=== PATIENT | female | born 1955 ===

== ENCOUNTER 2023-09-29 22:48 | Inpatient (IN) | payer MEDICARE, OTHER ==
[~2023-09-29] VITALS: Ht 165.1 cm; Wt 83.0 kg
[2023-09-29] MEDS ORDERED: AMIN30LI27 PO (23:16)
[2023-09-29] MEDS ORDERED: DIVA500T2 PO (23:16)
[2023-09-29] MEDS ORDERED: SIMV10TA98 PO (23:16)
[2023-09-29] MEDS ORDERED: PIOG30TA10 PO (23:16)
[2023-09-29] MEDS ORDERED: TRAM50TA2 PO (23:16)
[2023-09-29] MEDS ORDERED: HYDR-894 PO (23:16)
[2023-09-29] MEDS ORDERED: ONDA-104 PO (23:16)
[2023-09-29] MEDS ORDERED: METF-442 PO (23:16)
[2023-09-29] MEDS ORDERED: FOLI1TAB27 PO (23:16)
[2023-09-29] MEDS ORDERED: CHOL500062 PO (23:16)
[2023-09-29] MEDS ORDERED: CALC-261 PO (23:16)
[2023-09-29] MEDS ORDERED: CYAN100T44 PO (23:16)
[2023-09-29] MEDS ORDERED: LORA0.5T48 PO (23:16)
[2023-09-29] MEDS ORDERED: CLON0.5T PO (23:16)
[2023-09-29] MEDS ORDERED: METO25TA6 PO (23:16)
[2023-09-29] MEDS ORDERED: FERR325T28 PO (23:16)
[2023-09-29] MEDS ORDERED: ACET-3117 PO (23:16)
[2023-09-29] MEDS ORDERED: HALOPERIDOL LACTATE 5 MG/1 ML VIAL ONE (23:21)
[2023-09-29] MEDS: HALOPERIDOL LACTATE 5 MG/1 ML VIAL IM ONE (23:30)
[2023-09-29 23:41] LABS: BASOPHILS % (AUTO) 0.4 % (0.0-2.0); EOSINOPHILS % (AUTO) 0.4 % (0.0-7.0); HEMATOCRIT 34.5 % (31.2-41.9); HEMOGLOBIN 11.1 g/dL (10.9-14.3); LYMPHOCYTES # (AUTO) 2.3 K/uL (0.8-4.8); LYMPHOCYTES % (AUTO) 24.1 % (20.5-51.5); MEAN CORPUSCULAR HEMOGLOBIN 25.1 uug (24.7-32.8); MEAN CORPUSCULAR HGB CONC 32 g/dL (32.3-35.6); MEAN CORPUSCULAR VOLUME 78.2 fL (75.5-95.3); MONOCYTES # (AUTO) 0.8 K/uL (0.1-1.30); MONOCYTES % (AUTO) 8.3 % (0.0-11.0); NEUTROPHILS # (AUTO) 6.2 K/uL (1.8-8.9); NEUTROPHILS % (AUTO) 66.8 % (38.5-71.5); PLATELET COUNT (AUTO) 202 K/uL (179-408); RED BLOOD CELL COUNT(AUTO) 4.41 MIL/uL (3.63-4.92); RED CELL DISTRIBUTION WIDTH 16.8 % (12.3-17.7); WHITE BLOOD COUNT (AUTO) 9.3 K/uL (3.8-11.8)
[2023-09-29 23:46] LABS: DIFFERENTIAL COMMENT 1
[2023-09-29 23:51] LABS: CARBON DIOXIDE 28 mmol/L (21-32); CHLORIDE 95 mmol/L (98-107); CREATININE 0.9 mg/dL (0.6-1.3); GLUCOSE 199 mg/dL (74-106); POTASSIUM 4.5 mmol/L (3.5-5.1); SODIUM SERUM 131 mmol/L (136-145); UREA NITROGEN, BLOOD 15 mg/dL (7-18)
[2023-09-30 00:07] LABS: ALANINE AMINOTRANSFERASE 11 U/L (14-59); ALKALINE PHOSPHATASE 129 U/L (50-136); ASPARTATE AMINOTRANSFERASE 13 U/L (15-37); BILIRUBIN,DIRECT 0.2 mg/dL (0.0-0.2); BILIRUBIN,TOTAL 0.3 mg/dL (0.2-1.0); TOTAL PROTEIN, SERUM 7.7 g/dL (6.4-8.2)
[2023-09-30 00:10] LABS: ACETAMINOPHEN < 2.0 ug/mL (10-30)
[2023-09-30 00:15] LABS: ETHANOL < 3 MG/DL (0-10)
[2023-09-30 00:40] LABS: THYROID STIMULATING HORMONE 2.173 mIU/mL (0.358-3.740)
[2023-09-30] MEDS ORDERED: HALOPERIDOL LACTATE 5 MG/1 ML VIAL ONE (01:59)
[2023-09-30] MEDS: HALOPERIDOL LACTATE 5 MG/1 ML VIAL IM ONE (02:05)
[2023-09-30] MEDS ORDERED: LORAZEPAM 1 MG TABLET ONE ×2 (02:24→03:15)
[2023-09-30] MEDS: LORAZEPAM 0.5 MG TABLET PO ONE ×2 (02:27→03:17)
[2023-09-30] MEDS ORDERED: chlorproMAZINE 50 MG/2 ML AMPUL ONE (04:16)
[2023-09-30] MEDS: chlorproMAZINE 50 MG/2 ML AMPUL IM ONE (04:23)
[2023-09-30] MEDS ORDERED: MAG HYDROX/AL HYDROX/SIMETH 30 ML LIQUID UDC PO PRN (06:00)
[2023-09-30] MEDS ORDERED: MAGNESIUM HYDROXIDE 30 ML LIQUID UDC PO PRN (06:00)
[2023-09-30] MEDS: BLOOD SUGAR DIAGNOSTIC 1 EACH STRIP VI ONE (06:40)
[2023-09-30 07:33] VITALS: BP 100/56; TEMP 98; O2SAT 97
[2023-09-30] MEDS ORDERED: INSU100V39 SQ (14:08)
[2023-09-30] MEDS ORDERED: DEXTROSE 50% 50 ML DISP.SYRIN IV PRN (15:00)
[2023-09-30] MEDS ORDERED: hydrALAZINE HCL 25 MG TABLET PO PRN (15:00)
[2023-09-30 16:00] VITALS: BP 115/61; TEMP 97.8; O2SAT 97
[2023-09-30] MEDS: BLOOD SUGAR DIAGNOSTIC 1 EACH STRIP VI SCH (16:46)
[2023-09-30] MEDS: INSULIN REGULAR, HUMAN 300 UNIT/3 ML VIAL SQ PRN (17:11)
[2023-09-30] MEDS: METFORMIN HCL 500 MG TABLET PO SCH (17:55)
[2023-09-30] MEDS: TRAMADOL HCL 50 MG TABLET PO PRN (17:55)
[2023-09-30 20:00] VITALS: BP 140/54; TEMP 98.3; O2SAT 97
[2023-09-30] MEDS: SIMVASTATIN 10 MG TABLET PO SCH (20:44)
[2023-09-30] MEDS: ZOLPIDEM 5 MG TABLET PO PRN (20:44)
[2023-10-01] MEDS: QUETIAPINE FUMARATE 25 MG TABLET PO PRN (03:25)
[2023-10-01 07:58] VITALS: BP 121/64; TEMP 98; O2SAT 92
[2023-10-01 08:17] LABS: BASOPHILS % (AUTO) 0.4 % (0.0-2.0); EOSINOPHILS % (AUTO) 0.5 % (0.0-7.0); HEMATOCRIT 32.6 % (31.2-41.9); HEMOGLOBIN 10.6 g/dL (10.9-14.3); LYMPHOCYTES # (AUTO) 1.6 K/uL (0.8-4.8); LYMPHOCYTES % (AUTO) 28.4 % (20.5-51.5); MEAN CORPUSCULAR HEMOGLOBIN 25.5 uug (24.7-32.8); MEAN CORPUSCULAR HGB CONC 33 g/dL (32.3-35.6); MEAN CORPUSCULAR VOLUME 78.3 fL (75.5-95.3); MONOCYTES # (AUTO) 0.5 K/uL (0.1-1.30); MONOCYTES % (AUTO) 9.1 % (0.0-11.0); NEUTROPHILS # (AUTO) 3.5 K/uL (1.8-8.9); NEUTROPHILS % (AUTO) 61.6 % (38.5-71.5); PLATELET COUNT (AUTO) 178 K/uL (179-408); RED BLOOD CELL COUNT(AUTO) 4.17 MIL/uL (3.63-4.92); WHITE BLOOD COUNT (AUTO) 5.7 K/uL (3.8-11.8)
[2023-10-01] MEDS: CALCIUM CARB/VITAMIN D 500MG-200UNITS TABLET PO SCH (08:22)
[2023-10-01] MEDS: FERROUS SULFATE 325 MG TABEC PO SCH (08:22)
[2023-10-01] MEDS: PIOGLITAZONE HCL 15 MG TABLET PO SCH (08:22)
[2023-10-01] MEDS: FOLIC ACID 1 MG TABLET PO SCH (08:23)
[2023-10-01] MEDS: CYANOCOBALAMIN 1,000 MCG TABLET PO SCH (08:23)
[2023-10-01] MEDS: CHOLECALCIFEROL 1,000 UNIT TABLET PO SCH (08:23)
[2023-10-01] MEDS: PROTEIN SUPPLEMENT (PROSTAT) 30 ML LIQUID PO SCH (08:27)
[2023-10-01 08:35] LABS: ALBUMIN 2.5 g/dL (3.4-5.0); BILIRUBIN,TOTAL 0.4 mg/dL (0.2-1.0); CALCIUM 8.5 mg/dL (8.5-10.1); CREATININE 0.9 mg/dL (0.6-1.3); MAGNESIUM 1.7 mg/dL (1.8-2.4)
[2023-10-01 08:38] LABS: DIFFERENTIAL COMMENT 1
[2023-10-01] MEDS: REMEDY ESSENTIAL ZINC PASTE 113 GM TOP SCH (12:57)
[2023-10-01] MEDS: MAGNESIUM OXIDE 400 MG TABLET PO ONE (14:24)
[2023-10-01 15:19] VITALS: BP 169/86; TEMP 98.2; O2SAT 96
[2023-10-01 20:00] VITALS: BP 144/70; TEMP 99.8; O2SAT 91
[2023-10-01] MEDS: QUETIAPINE FUMARATE 25 MG TABLET PO SCH (22:49)
[2023-10-02 08:22] VITALS: BP 184/87; TEMP 98.9; O2SAT 97
[2023-10-02] MEDS: DIVALPROEX 125 MG TABLET.DR PO SCH (08:43)
[2023-10-02 17:00] VITALS: BP 137/71; TEMP 99.7; O2SAT 97
[2023-10-02] MEDS: QUETIAPINE FUMARATE 25 MG TABLET PO SCH (20:48)
[2023-10-02 22:41] VITALS: BP 171/73; TEMP 97.5
[2023-10-03 08:30] VITALS: BP 152/73; TEMP 98.5; O2SAT 96
[2023-10-03 15:56] VITALS: BP 140/75; TEMP 98; O2SAT 97
[2023-10-03 19:57] VITALS: BP 142/68; TEMP 98.1; O2SAT 96
[2023-10-03] MEDS: QUETIAPINE FUMARATE 25 MG TABLET PO SCH (21:25)
[2023-10-04 07:42] VITALS: BP 120/56; TEMP 98.2; O2SAT 91
[2023-10-04] MEDS: QUETIAPINE FUMARATE 25 MG TABLET PO SCH (08:21)
[2023-10-04] MEDS: glipiZIDE 5 MG TABLET PO SCH (08:25)
[2023-10-04 08:40] LABS: BASOPHILS % (AUTO) 0.5 % (0.0-2.0); EOSINOPHILS # (AUTO) 0.2 K/uL (0.0-0.7); EOSINOPHILS % (AUTO) 2.5 % (0.0-7.0); HEMATOCRIT 29.7 % (31.2-41.9); HEMOGLOBIN 9.7 g/dL (10.9-14.3); LYMPHOCYTES # (AUTO) 1.8 K/uL (0.8-4.8); LYMPHOCYTES % (AUTO) 25.7 % (20.5-51.5); MEAN CORPUSCULAR HEMOGLOBIN 25.1 uug (24.7-32.8); MEAN CORPUSCULAR HGB CONC 33 g/dL (32.3-35.6); MEAN CORPUSCULAR VOLUME 77.1 fL (75.5-95.3); MONOCYTES # (AUTO) 0.7 K/uL (0.1-1.30); MONOCYTES % (AUTO) 10.1 % (0.0-11.0); NEUTROPHILS # (AUTO) 4.2 K/uL (1.8-8.9); NEUTROPHILS % (AUTO) 61.2 % (38.5-71.5); PLATELET COUNT (AUTO) 199 K/uL (179-408); RED BLOOD CELL COUNT(AUTO) 3.85 MIL/uL (3.63-4.92); RED CELL DISTRIBUTION WIDTH 16.7 % (12.3-17.7); WHITE BLOOD COUNT (AUTO) 6.9 K/uL (3.8-11.8)
[2023-10-04 08:56] LABS: ALBUMIN 2.4 g/dL (3.4-5.0); BILIRUBIN,TOTAL 0.3 mg/dL (0.2-1.0); CREATININE 1.1 mg/dL (0.6-1.3); MAGNESIUM 1.6 mg/dL (1.8-2.4); PHOSPHOROUS 3.4 mg/dL (2.5-4.9); POTASSIUM 4.5 mmol/L (3.5-5.1); TOTAL PROTEIN, SERUM 6.7 g/dL (6.4-8.2)
[2023-10-04 08:57] LABS: DIFFERENTIAL COMMENT 1
[2023-10-04] MEDS: MAGNESIUM OXIDE 400 MG TABLET PO ONE (12:30)
[2023-10-04 15:53] VITALS: BP 121/63; TEMP 98.2; O2SAT 93
[2023-10-04 19:41] VITALS: BP 120/64; TEMP 98.1; O2SAT 94
[2023-10-04] MEDS: ACETAMINOPHEN 325 MG TABLET PO PRN (22:47)
[2023-10-05] MEDS: OLANZAPINE 10 MG VIAL IM ONE (00:21)
[2023-10-05 08:14] VITALS: BP 146/73; TEMP 98; O2SAT 96
[2023-10-05 15:46] VITALS: BP 123/71; TEMP 98; O2SAT 96
[2023-10-05 19:43] VITALS: BP 136/76; TEMP 98.1; O2SAT 96
[2023-10-05] MEDS: QUETIAPINE FUMARATE 25 MG TABLET PO SCH (20:16)
[2023-10-06] MEDS: ZIPRASIDONE MESYLATE 20 MG VIAL IM ONE (00:37)
[2023-10-06 07:38] VITALS: BP 140/70; TEMP 98.2; O2SAT 96
[2023-10-06 08:19] LABS: CALCIUM 8.9 mg/dL (8.5-10.1); CREATININE 0.9 mg/dL (0.6-1.3); POTASSIUM 4.5 mmol/L (3.5-5.1)
[2023-10-06] MEDS: QUETIAPINE FUMARATE 25 MG TABLET PO SCH ×2 (08:59→20:23)
[2023-10-06] MEDS: DIVALPROEX 125 MG TABLET.DR PO SCH (13:09)
[2023-10-06 15:29] VITALS: BP 131/64; TEMP 98; O2SAT 96
[2023-10-06] MEDS: glipiZIDE 5 MG TABLET PO SCH (16:52)
[2023-10-06 20:00] VITALS: BP 133/63; TEMP 98.5; O2SAT 96
[2023-10-06] MEDS: MELATONIN 3 MG TABLET PO SCH (20:23)
[2023-10-06] MEDS: TRAZODONE 50 MG TABLET PO SCH (20:23)
[2023-10-07 07:54] VITALS: BP 122/57; TEMP 98; O2SAT 96
[2023-10-07 15:09] VITALS: BP 119/96; TEMP 98; O2SAT 96
[2023-10-07] MEDS: glipiZIDE 5 MG TABLET PO SCH (16:30)
[2023-10-07 20:00] VITALS: BP 140/80; TEMP 97.8; O2SAT 93
[2023-10-08 08:01] VITALS: BP 115/61; TEMP 98; O2SAT 96
[2023-10-08 16:18] VITALS: BP 111/53; TEMP 97.8; O2SAT 98
[2023-10-08] MEDS: busPIRone 5 MG TABLET PO SCH (19:35)
[2023-10-08 20:00] VITALS: BP 136/58; TEMP 98.1; O2SAT 98
[2023-10-08] MEDS: OLANZAPINE 5 MG TABLET PO SCH (20:16)
[2023-10-09 07:30] LABS: CALCIUM 8.7 mg/dL (8.5-10.1); CREATININE 0.8 mg/dL (0.6-1.3); POTASSIUM 4.6 mmol/L (3.5-5.1)
[2023-10-09 08:10] VITALS: BP 115/60; TEMP 99.2; O2SAT 98
[2023-10-09] MEDS: OLANZAPINE 5 MG TABLET PO SCH ×2 (08:30→20:35)
[2023-10-09] MEDS ORDERED: DIVALPROEX 125 MG TABLET.DR PO SCH (14:00)
[2023-10-09] MEDS: DIVALPROEX 250 MG TABLET.DR PO ONE (14:20)
[2023-10-09 17:37] VITALS: BP 139/69; TEMP 99; O2SAT 97
[2023-10-09 20:00] VITALS: BP 149/69; TEMP 98.7; O2SAT 97
[2023-10-09] MEDS: DIVALPROEX 125 MG TABLET.DR PO SCH (20:35)
[2023-10-10 07:51] VITALS: BP 100/52; TEMP 97.8; O2SAT 97
[2023-10-10 16:38] VITALS: BP 128/59; TEMP 98; O2SAT 97
[2023-10-10] MEDS: glipiZIDE 5 MG TABLET PO SCH (17:40)
[2023-10-10 20:12] VITALS: BP 116/54; TEMP 97.9; O2SAT 96
[2023-10-10] MEDS: MELATONIN 3 MG TABLET PO SCH (20:35)
[2023-10-10] MEDS: TRAZODONE 50 MG TABLET PO SCH (20:35)
[2023-10-10] MEDS: OLANZAPINE 5 MG TABLET PO SCH (20:35)
[2023-10-11 10:12] VITALS: BP 131/51; TEMP 98; O2SAT 97
[2023-10-11] MEDS: CLONAZEPAM 0.5 MG TABLET PO SCH (12:39)
[2023-10-11 19:45] VITALS: BP 126/62; TEMP 98.1; O2SAT 96
[2023-10-12 08:03] VITALS: BP 126/63; TEMP 98; O2SAT 98
[2023-10-12] MEDS: OLANZAPINE 5 MG TABLET PO SCH (09:03)
[2023-10-12] MEDS: PROTEIN SUPPLEMENT (PROSTAT) 30 ML LIQUID PO SCH (13:45)
[2023-10-12] MEDS: DIVALPROEX 500 MG TABLET.DR PO SCH (14:45)
[2023-10-12 15:23] VITALS: BP 136/69; TEMP 98; O2SAT 96
[2023-10-12 19:35] VITALS: BP 130/64; TEMP 98.1; O2SAT 95
[2023-10-13 07:30] VITALS: BP 128/69; TEMP 98; O2SAT 96
[2023-10-13] MEDS: busPIRone 5 MG TABLET PO SCH (10:07)
[2023-10-13 14:11] LABS: CALCIUM 8.9 mg/dL (8.5-10.1); POTASSIUM 4.3 mmol/L (3.5-5.1)
[2023-10-13 14:12] LABS: CREATININE 0.8 mg/dL (0.6-1.3)
[2023-10-13 15:18] VITALS: BP 128/69; TEMP 98; O2SAT 93
[2023-10-13 20:00] VITALS: BP 150/83; TEMP 98.3; O2SAT 94
[2023-10-13] MEDS: QUETIAPINE FUMARATE 25 MG TABLET PO SCH (20:50)
[2023-10-13] MEDS: OLANZAPINE 5 MG TABLET PO SCH (20:51)
[2023-10-14 07:50] VITALS: BP 122/61; TEMP 97.8; O2SAT 91
[2023-10-14 08:04] LABS: CALCIUM 8.7 mg/dL (8.5-10.1); CREATININE 0.8 mg/dL (0.6-1.3); POTASSIUM 4.2 mmol/L (3.5-5.1)
[2023-10-14 15:05] VITALS: BP 155/76; TEMP 98; O2SAT 96
[2023-10-14 20:00] VITALS: BP 134/73; TEMP 98; O2SAT 95
[2023-10-14] MEDS: DIVALPROEX SPRINKLE 125 MG CAP.SPRINK PO SCH (21:00)
[2023-10-15 07:59] VITALS: BP 110/65; TEMP 98; O2SAT 94
[2023-10-15 08:15] LABS: *OCCULT BLOOD STOOL NEGATIVE (NEGATIVE)
[2023-10-15 15:19] VITALS: BP 132/74; TEMP 98.2; O2SAT 100
[2023-10-15 20:00] VITALS: BP 128/71; TEMP 98.1; O2SAT 96
[2023-10-16 07:30] VITALS: BP 100/61; TEMP 98.2; O2SAT 98
== END 2023-10-16 13:45 | DRG 885 ==
LOC: ER 22:56 → GPS 09-30 04:42
PROVIDERS: ADMIT Psychiatry & Neurology Psychiatry; ATTEND Internal Medicine
DX: F29 Unspecified psychosis not due to a substance or known physiological condition (principal); E11.65 Type 2 diabetes mellitus with hyperglycemia; F03.93 Unspecified dementia, unspecified severity, with mood disturbance; F03.918 Unspecified dementia, unspecified severity, with other behavioral disturbance; F03.911 Unspecified dementia, unspecified severity, with agitation; E44.1 Mild protein-calorie malnutrition; E87.1 Hypo-osmolality and hyponatremia; E44.0 Moderate protein-calorie malnutrition; L89.620 Pressure ulcer of left heel, unstageable; L89.890 Pressure ulcer of other site, unstageable; Z91.81 History of falling; E66.9 Obesity, unspecified; Z68.30 Body mass index [BMI] 30.0-30.9, adult; Z71.3 Dietary counseling and surveillance; M15.9 Polyosteoarthritis, unspecified; R13.12 Dysphagia, oropharyngeal phase; D50.9 Iron deficiency anemia, unspecified; E11.51 Type 2 diabetes mellitus with diabetic peripheral angiopathy without gangrene; Z79.4 Long term (current) use of insulin; I25.10 Atherosclerotic heart disease of native coronary artery without angina pectoris; I10 Essential (primary) hypertension; Z79.84 Long term (current) use of oral hypoglycemic drugs; Z91.199 Patient's noncompliance with other medical treatment and regimen due to unspecified reason; Z79.899 Other long term (current) drug therapy; E88.09 Other disorders of plasma-protein metabolism, not elsewhere classified; E78.5 Hyperlipidemia, unspecified
CPT/HCPCS: 36415; 71045; 80164; 82652; 83550; 83735; 84100; 84443; 85025; A6209; G0480; J1630; J1815; J2358; J3230; J3486; J3490

== ENCOUNTER 2023-10-26 19:14 | Emergency (ER) | payer MEDICARE, OTHER ==
[~2023-10-26] VITALS: Ht 165.1 cm; Wt 68.0 kg
[~2023-10-26 19:14] MED LIST: ACET-3117 PO; AMIN30LI27 PO; CALC-261 PO; CHOL500062 PO; CYAN100T44 PO; FERR325T28 PO; FOLI1TAB27 PO; HYDR-894 PO; INSU100V39 SQ; METF-442 PO; METO25TA6 PO; ONDA-104 PO; PIOG30TA10 PO; SIMV10TA98 PO; TRAM50TA2 PO
[2023-10-26] MEDS ORDERED: TRAZ-182 PO (19:36)
[2023-10-26] MEDS ORDERED: AMINO ACID PO (19:36)
[2023-10-26] MEDS ORDERED: CALC500T52 PO (19:36)
[2023-10-26] MEDS ORDERED: ZINC50TA69 PO (19:36)
[2023-10-26] MEDS ORDERED: OLAN7.5T3 PO (19:36)
[2023-10-26] MEDS ORDERED: MULT-213 PO (19:36)
[2023-10-26] MEDS ORDERED: CLON0.5T4 PO (19:36)
[2023-10-26] MEDS ORDERED: OLAN15TA3 PO (19:36)
[2023-10-26] MEDS ORDERED: DIVA125T2 PO (19:36)
[2023-10-26] MEDS ORDERED: GLIP5TAB13 PO (19:36)
[2023-10-26] MEDS ORDERED: GLUCOSE PO (19:36)
[2023-10-26] MEDS ORDERED: ZOLP5TAB2 PO (19:36)
[2023-10-26] MEDS ORDERED: MAGN400O6 PO (19:36)
[2023-10-26] MEDS ORDERED: BUSP15TA3 PO (19:36)
[2023-10-26] MEDS ORDERED: QUET25TA PO (19:36)
[2023-10-26] MEDS ORDERED: ASCO500C18 PO (19:36)
[2023-10-26] MEDS ORDERED: NA P133E RC (19:36)
[2023-10-26] MEDS ORDERED: MELA3TAB47 PO (19:36)
[2023-10-26 19:48] LABS: BASOPHILS % (AUTO) 0.3 % (0.0-2.0); EOSINOPHILS % (AUTO) 0.6 % (0.0-7.0); HEMATOCRIT 34.5 % (31.2-41.9); HEMOGLOBIN 10.5 g/dL (10.9-14.3); LYMPHOCYTES # (AUTO) 2.2 K/uL (0.8-4.8); LYMPHOCYTES % (AUTO) 29.8 % (20.5-51.5); MEAN CORPUSCULAR HEMOGLOBIN 24.5 uug (24.7-32.8); MEAN CORPUSCULAR HGB CONC 31 g/dL (32.3-35.6); MONOCYTES # (AUTO) 0.6 K/uL (0.1-1.30); MONOCYTES % (AUTO) 8.8 % (0.0-11.0); NEUTROPHILS # (AUTO) 4.4 K/uL (1.8-8.9); NEUTROPHILS % (AUTO) 60.5 % (38.5-71.5); PLATELET COUNT (AUTO) 106 K/uL (179-408); RED BLOOD CELL COUNT(AUTO) 4.31 MIL/uL (3.63-4.92); RED CELL DISTRIBUTION WIDTH 17.4 % (12.3-17.7); WHITE BLOOD COUNT (AUTO) 7.3 K/uL (3.8-11.8)
[2023-10-26 19:59] LABS: AMMONIA 24 umol/L (11-32); ETHANOL < 3 MG/DL (0-10)
[2023-10-26 20:04] LABS: CALCIUM 8.4 mg/dL (8.5-10.1); CARBON DIOXIDE 23 mmol/L (21-32); CHLORIDE 107 mmol/L (98-107); CREATININE 1.1 mg/dL (0.6-1.3); GLUCOSE 136 mg/dL (74-106); POTASSIUM 4.1 mmol/L (3.5-5.1); SODIUM SERUM 141 mmol/L (136-145); UREA NITROGEN, BLOOD 22 mg/dL (7-18)
[2023-10-26 20:08] LABS: DIFFERENTIAL COMMENT 1
[2023-10-26 20:20] LABS: ALANINE AMINOTRANSFERASE 7 U/L (14-59); ALBUMIN 1.9 g/dL (3.4-5.0); ALKALINE PHOSPHATASE 110 U/L (50-136); ASPARTATE AMINOTRANSFERASE 8 U/L (15-37); BILIRUBIN,DIRECT 0.1 mg/dL (0.0-0.2); BILIRUBIN,TOTAL 0.3 mg/dL (0.2-1.0)
[2023-10-26 20:22] LABS: ACETAMINOPHEN < 10.0 ug/mL (10-30)
[2023-10-26] MEDS ORDERED: diphenhydrAMINE 50 MG/1 ML VIAL ONE (20:41)
[2023-10-26] MEDS ORDERED: HALOPERIDOL LACTATE 5 MG/1 ML VIAL ONE (20:42)
[2023-10-26] MEDS ORDERED: LORAZEPAM 2 MG/1 ML VIAL ONE (20:42)
[2023-10-26] MEDS: HALOPERIDOL LACTATE 5 MG/1 ML VIAL IM ONE (20:46)
[2023-10-26] MEDS: LORAZEPAM 2 MG/1 ML VIAL IM ONE (20:46)
[2023-10-26] MEDS: diphenhydrAMINE 50 MG/1 ML VIAL IM ONE (20:46)
[2023-10-26 23:58] VITALS: BP 139/68; TEMP 98; O2SAT 94
== END 2023-10-26 23:50 ==
LOC: ER 19:18
DX: R91.1 Solitary pulmonary nodule (principal); J98.4 Other disorders of lung; E11.9 Type 2 diabetes mellitus without complications; R26.9 Unspecified abnormalities of gait and mobility; F03.90 Unspecified dementia, unspecified severity, without behavioral disturbance, psychotic disturbance, mood disturbance, and anxiety; D50.9 Iron deficiency anemia, unspecified; Z79.84 Long term (current) use of oral hypoglycemic drugs; Z79.4 Long term (current) use of insulin; Z79.899 Other long term (current) drug therapy
CPT/HCPCS: 80076; 80048; 82140; 85025; 85730; 87040 ×2; 84484; 36415; 93005; 71045; 70450; 71250; 72125; 99291; 96372 ×2; 83605; 80299; 80320; J1200; J1630; J2060; A4606; A4663; G0480